=== PATIENT | male | born 1995 | race Caucasian/White ===

== ENCOUNTER 2017-08-08 16:37 | Emergency (ER) | payer BC ==
[~2017-08-08] VITALS: Ht 182.9 cm; Wt 111.0 kg
[2017-08-08] MEDS ORDERED: KETOROLAC 60MG/2ML VIAL IM ONE (21:00)
[2017-08-08 21:20] VITALS: BP 131/93
== END 2017-08-08 21:21 | disposition home or self-care (01) ==
LOC: ER 20:36
DX: K11.5 Sialolithiasis (principal); H65.192 Other acute nonsuppurative otitis media, left ear
CPT/HCPCS: 96372; 99283; J1885; X7700; Z7610

== ENCOUNTER 2019-12-10 09:57 | Emergency (ER) | payer BC ==
[~2019-12-10] VITALS: Ht 182.9 cm; Wt 112.0 kg
[2019-12-10] MEDS ORDERED: ACETAMINOPHEN 325MG TABLET PO ONE (10:45)
[2019-12-10 11:30] VITALS: BP 135/85
== END 2019-12-10 11:33 | disposition home or self-care (01) ==
LOC: ER 09:57
DX: H60.502 Unspecified acute noninfective otitis externa, left ear (principal); K64.4 Residual hemorrhoidal skin tags
CPT/HCPCS: 99282

== ENCOUNTER 2019-12-26 22:51 | Emergency (ER) | payer BC ==
[~2019-12-26] VITALS: Ht 182.9 cm; Wt 114.0 kg
[2019-12-26] MEDS ORDERED: IBUPROFEN 600MG TABLET PO ONE (23:45)
[2019-12-26 23:53] VITALS: BP 134/84
== END 2019-12-26 23:55 | disposition home or self-care (01) ==
LOC: ER 23:24
DX: K64.9 Unspecified hemorrhoids (principal); M54.9 Dorsalgia, unspecified; I49.9 Cardiac arrhythmia, unspecified
CPT/HCPCS: 93005; 99281; 99283

== ENCOUNTER 2020-03-27 07:57 | Emergency (ER) | payer BC ==
[~2020-03-27] VITALS: Ht 182.9 cm; Wt 118.0 kg
[2020-03-27] MEDS ORDERED: DOCU-138 PO (08:02)
[2020-03-27] MEDS ORDERED: MAGNESIUM/ALUMINUM HYDROXIDE/SIMETHICONE 30ML UDC PO STA (08:16)
[2020-03-27] MEDS ORDERED: ONDANSETRON HCL 4MG/2ML INJ IV STA (08:16)
[2020-03-27] MEDS ORDERED: FAMOTIDINE 20MG/2ML VIAL IV STA (08:16)
[2020-03-27] MEDS ORDERED: SODIUM CHLORIDE 0.9% 1,000 ML IV ONE (08:30)
[2020-03-27 08:45] LABS: BASOPHILS % 1.1 % (0.0-2.0); EOSINOPHILS % 1.5 % (0.0-5.0); HEMATOCRIT. 41.4 % (42.0-52.0); LYMPHOCYTES % 29.6 % (20.0-50.0); MEAN CORPUSCULAR HEMOGLOBIN 30.7 pg (28.0-32.0); MEAN CORPUSCULAR VOLUME 90.5 fL (80.0-94.0); MEAN PLATELET VOLUME 9.2 fl (7.4-10.4); NEUTROPHILS % 60.8 % (40.0-76.0); PLATELET 256 x1000/uL (130-400); RED BLOOD CELL COUNT 4.57 mill/uL (4.7-6.1)
[2020-03-27 08:50] LABS: CHLORIDE 107 mEq/L (98-107)
[2020-03-27 08:58] LABS: ETHANOL BLOOD < 10 mg/dL
[2020-03-27] MEDS ORDERED: KETOROLAC 15MG/ML VIAL IV SCH (10:15)
[2020-03-27] MEDS ORDERED: ONDANSETRON HCL 4MG/2ML INJ IV ONE (10:30)
[2020-03-27 12:04] VITALS: BP 132/88
== END 2020-03-27 12:37 | disposition home or self-care (01) ==
LOC: ER 07:57
DX: K82.8 Other specified diseases of gallbladder (principal); R11.2 Nausea with vomiting, unspecified; Z98.890 Other specified postprocedural states
CPT/HCPCS: 36415; 71045; 76700; 80053; 80320; 83690; 85025; 96361; 96374; 96375; 99285; J1885; J2405; J3490; J7030; G0480

== ENCOUNTER 2021-09-14 08:58 | Emergency (ER) | payer BC, MEDICAID ==
[~2021-09-14] VITALS: Ht 182.9 cm; Wt 128.0 kg
[~2021-09-14 08:58] MED LIST: DOCU-138 PO
[2021-09-14 09:07] VITALS: BP 134/86
[2021-09-14] MEDS ORDERED: MAGNESIUM/ALUMINUM HYDROXIDE/SIMETHICONE 30ML UDC PO ONE (11:30)
[2021-09-14] MEDS ORDERED: VISCOUS LIDOCAINE 2% 15 ML UDC PO ONE (11:30)
[2021-09-14] MEDS ORDERED: PANTOPRAZOLE 40MG DR TABLET PO ONE (11:30)
[2021-09-14 12:03] LABS: BASOPHILS % 1.1 % (0.0-2.0); HEMATOCRIT. 41.6 % (42.0-52.0); HEMOGLOBIN. 13.9 g/dL (14.0-18.0); LYMPHOCYTES % 30.6 % (20.0-50.0); MEAN CORPUSCULAR HEMOGLOBIN 27.2 pg (28.0-32.0); MEAN CORPUSCULAR VOLUME 81.7 fL (80.0-94.0); MEAN PLATELET VOLUME 8.3 fl (7.4-10.4); MONOCYTES % 6.5 % (2.0-8.0); NEUTROPHILS % 60.8 % (40.0-76.0); PLATELET 381 x1000/uL (130-400); RED CELL DISTRIBUTION WIDTH 13.5 % (11.6-14.6)
[2021-09-14 12:10] LABS: CHLORIDE 106 mEq/L (98-107)
[2021-09-14] MEDS ORDERED: PANT20TA17 MT (12:50)
== END 2021-09-14 13:26 | disposition home or self-care (01) ==
LOC: ER 08:58
DX: K76.0 Fatty (change of) liver, not elsewhere classified (principal); Z98.890 Other specified postprocedural states
CPT/HCPCS: 36415; 76705; 80053; 85025; 99284

== ENCOUNTER 2021-12-03 12:22 | Emergency (ER) | payer MEDICAID ==
[~2021-12-03] VITALS: Ht 167.6 cm; Wt 101.0 kg
[~2021-12-03 12:22] MED LIST changes: +PANT20TA17 MT
[2021-12-03 16:01] LABS: CHLORIDE 104 mEq/L (98-107)
[2021-12-03 16:15] LABS: HEMATOCRIT. 38.7 % (42.0-52.0); HEMOGLOBIN. 12.9 g/dL (14.0-18.0); MEAN CORPUSCULAR HEMOGLOBIN 27.3 pg (28.0-32.0); MEAN CORPUSCULAR VOLUME 81.9 fL (80.0-94.0); MEAN PLATELET VOLUME 8.3 fl (7.4-10.4); PLATELET 218 x1000/uL (130-400); RED BLOOD CELL COUNT 4.72 mill/uL (4.7-6.1); RED CELL DISTRIBUTION WIDTH 14.2 % (11.6-14.6)
[2021-12-03 19:16] VITALS: BP 123/83
[2021-12-03 22:30] LABS: PLATELET ESTIMATE NORMAL
== END 2021-12-03 19:30 | disposition home or self-care (01) ==
LOC: ER 12:42
DX: R20.2 Paresthesia of skin (principal); I10 Essential (primary) hypertension; R11.2 Nausea with vomiting, unspecified; K21.9 Gastro-esophageal reflux disease without esophagitis
CPT/HCPCS: 36415; 80053; 84484; 85025; 93005; 99284

== ENCOUNTER 2022-12-15 15:13 | Emergency (ER) | payer MEDICAID, OTHER ==
[~2022-12-15] VITALS: Ht 182.9 cm; Wt 120.5 kg
[2022-12-15 15:23] VITALS: BP 135/85; PULSE 58; RESP 18; TEMP 98.6; O2SAT 96
[2022-12-15 16:21] LABS: BASOPHILS % 0.7 % (0.0-2.0); EOSINOPHILS % 0.8 % (0.0-5.0); HEMOGLOBIN. 13.4 g/dL (14.0-18.0); LYMPHOCYTES % 37.2 % (20.0-50.0); MEAN CORPUSCULAR HEMOGLOBIN 27.1 pg (28.0-32.0); MEAN CORPUSCULAR HGB CONC 32.8 g/dL (31.0-37.0); MEAN CORPUSCULAR VOLUME 82.6 fL (80.0-94.0); MEAN PLATELET VOLUME 8.8 fl (7.4-10.4); MONOCYTES % 6.4 % (2.0-8.0); NEUTROPHILS % 54.9 % (40.0-76.0); PLATELET 270 x1000/uL (130-400); RED BLOOD CELL COUNT 4.97 mill/uL (4.7-6.1); RED CELL DISTRIBUTION WIDTH 14.4 % (11.6-14.6); WHITE BLOOD COUNT 9.4 x1000/uL (4.5-11.0)
[2022-12-15 16:28] LABS: CLARITY URINE CLEAR (CLEAR); COLOR URINE YELLOW (YELLOW); GLUCOSE URINE NEGATIVE (NEGATIVE); KETONES URINE NEGATIVE (NEGATIVE); LEUKOCYTE ESTERASE URINE NEGATIVE (NEGATIVE); NITRITE URINE NEGATIVE (NEGATIVE); OCCULT BLOOD URINE NEGATIVE (NEGATIVE); PH URINE 5.5 (4.5-8.0); PROTEIN URINE NEGATIVE (NEGATIVE); SPECIFIC GRAVITY URINE 1.037 (1.005-1.030)
[2022-12-15 16:37] LABS: CHLORIDE 102 mEq/L (98-107); INDEX HEMOLYSI 1 (1-3); INDEX ICTERIC 1 (1-4); INDEX LIPEMIC 1 (1-3); POTASSIUM 3.9 mEq/L (3.5-5.1); SODIUM 136 mEq/L (136-145)
[2022-12-15 16:46] LABS: ALANINE AMINOTRANSFERASE 66 IU/L (13-61); ALBUMIN 3.9 g/dL (3.4-5.0); ASPARTATE AMINOTRANSFERASE 32 IU/L (15-37); BILIRUBIN TOTAL 0.6 mg/dL (0.1-1.0); CALCIUM 9.2 mg/dL (8.5-10.1); CARBON DIOXIDE 29 mEq/L (21-32); CREATININE 0.9 mg/dL (0.6-1.3); GLUCOSE 97 mg/dL (70-105); UREA NITROGEN BLOOD 16 mg/dL (7-21)
== END 2022-12-15 18:04 | disposition home or self-care (01) ==
LOC: ER 15:13
DX: K21.9 Gastro-esophageal reflux disease without esophagitis (principal)
CPT/HCPCS: 36415; 71101; 80053; 81003; 85025; 99284